=== PATIENT | female | born 1945 | race Caucasian/White ===

== ENCOUNTER 2018-04-20 19:10 | Emergency (ER) | payer MEDICARE, MEDICAID ==
[2018-04-20 19:24] VITALS: RESP 20; O2SAT 100
[2018-04-20] MEDS ORDERED: Sodium Chloride 0.9% 1,000 ML IV SCH (20:15)
--- NOTE | 2018-04-20 20:15 | ED PDOC ---
HPI: Chest Pain Chief Complaint (Provider): chest pain History Per: Patient History/Exam Limitations: no limitations Onset/Duration Of Symptoms: Days, Intermittent Episodes Current Symptoms Are (Timing): Still Present Severity: Moderate Pain Scale Rating Of: 7 Quality: Sharp Associated Symptoms: denies: Nausea, Dyspnea, Diaphoresis, Syncope Exacerbating Factors: None Alleviating Factors: None Additional History Per: Patient - Risk Factors PE Risk Factors: Neg: Extremity Immobilization/Fx, Decreased Mobilty /Activity, Recent Major Surgery, Recent Hospitalization, Previous DVT, Previous PE, CHF, Estrogen Usage TAD Risk Factors: Neg: Hypertension, Sudden Onset Of Pain <Jasmin Carr - Last Filed: 04/21/18 00:55> <Ismael Foster - Last Filed: 04/21/18 05:40> Time Seen by Provider: 04/20/18 19:28 Chief Complaint (Nursing): Chest Pain Additional Complaint(s): 73 yr old F presents to ED with complaint of left chest pain x 2 days. Patient describes pain as sharp, intermittent, last a few seconds and resolves on its own. Denies any exacerbating or alleviating factors. Associated symptoms are wet cough x 3 days, subjective fever, dysuria which resolved on its own. PMHx includes anxiety, arthritis and right total knee replacement. Denies SOB, nausea , vomiting, sweating, left arm pain, weakness, lower extremity swelling, hx of PE or DVT. Denies cardiac hx. Reports her PMD does EKG's in his office regularly and they have always been normal. Patient did not take her PRN dose of Xanax today, reports she usually takes 1 tab or 1.5 tabs daily. PMD: Kolby Joe PMHx: anxiety, arthritis SurgHx: right total knee replacement FMHx: mother at 92-had HTN, NIDDM; Father at 87-MD; sibling hx of endometrial cancer/liver failure/asthma attacks SocHx: denies tobacco/Etoh or drugs; lives alone, family lives near, can perform all ADL's on her own Medications: Aspirin 325mg PO QD, Xanax 1mg PO BID PRN anxiety Allergies: NKDA (Jasmin Carr) Supervising Attending Note <Jasmin Carr - Last Filed: 04/21/18 00:55> - Attestation: I have personally seen and examined this patient.: Yes I have fully participated in the care of the patient.: Yes I have reviewed all pertinent clinical information: Yes <Ismael Foster - Last Filed: 04/21/18 05:40> - Notes: Notes:: Patient presenting with atypical chest pain for 2 days. Low risk for cardiac involvement. EKG nonischemic, 2 troponins negative. Suitable for outpatient followup. (Ismael Foster) Past Medical History - Medical History PMH: Anxiety, Arthritis - Surgical History Other surgeries: right total knee replacement - Family History Family History: States: MD, Diabetes, Hypertension - Living Arrangements Living Arrangements: Alone - Social History Current smoker - smoking cessation education provided: No Ex-Smoker (has not smoked in the last 12 months): No Alcohol: None Drugs: Denies <Jasmin Carr - Last Filed: 04/21/18 00:55> <Ismael Foster - Last Filed: 04/21/18 05:40> Vital Signs: Last Vital Signs Temp 98.4 F 04/21/18 00:43 Pulse 69 04/21/18 00:43 Resp 20 04/21/18 00:43 BP 144/85 04/21/18 00:43 Pulse Ox 100 04/21/18 00:55 - Home Medications Home Medications: Ambulatory Orders Medication Instructions Recorded Acetaminophen with Codeine 1 tab PO BID PRN #6 tab 05/23/14 [Tylenol with Codeine No. 3 300 mg-30 mg] Alprazolam [Xanax] PRN 05/23/14 Acetaminophen with Codeine 1 tab PO Q4H PRN #15 tab 04/06/16 [Tylenol with Codeine No. 3 300 mg-30 mg] Lidocaine 5% [Lidoderm] 1 ea TD DAILY PRN #30 patch 04/06/16 Naproxen [Naprosyn] 1 tab PO BID PRN #60 tab 04/06/16 traMADol [Ultram] 50 mg PO Q8 PRN #12 tab 04/25/16 Nitrofurantoin Macrocrystals 100 mg PO BID 5 Days cap 04/21/18 [Macrobid] - Allergies Allergies/Adverse Reactions: Allergies Allergy/AdvReac Type Severity Reaction Status Date / Time No Known Allergies Allergy Verified 04/20/18 19:22 MARIANO Risk Score for UA/NSTEMI - MARIANO Risk Score Age > 64: YES 3 or more CAD Risk Factors: NO Known CAD (Stenosis greater than 50%): NO Aspirin use in past 7 days: YES Severe Angina: NO EKG ST changes greater than 0.5mm: NO MARIANO Score: 2 Risk %: 8% <Jasmin Carr - Last Filed: 04/21/18 00:55> Curb-65 Severity Score - CURB-65 Severity Score Confusion: No Respiratory Rate greater than/equal to 30: No Systolic BP <90 or Diastolic BP less than/equal 60mmHg: No Age >64: Yes Curb-65 Score: 1 Percentage 30-day mortality: 2.7% <Jasmin Carr - Last Filed: 04/21/18 00:55> Wells Criteria for PE - Wells Criteria for Pulmonary Embolism Clinical Signs and Symptoms of DVT: No P.E is #1 Diagnosis, or Equally Likely: No Heart Rate >100: No Immobilization at least 3 days;Surgery previous 4 weeks: No Previous, objectively diagnosed PE or DVT: No Hemoptysis: No Malignancy w/treatment within 6 months, or palliative: No Total Score: 0 <Jasmin Carr - Last Filed: 04/21/18 00:55> Review of Systems Constitutional: Positive for: Fever (subjective). Negative for: Sweats, Weakness Eyes: Negative for: Vision Change ENT: Negative for: Nose Congestion Cardiovascular: Positive for: Chest Pain. Negative for: Palpitations, Orthopnea , Edema, Light Headedness Respiratory: Positive for: Cough. Negative for: Shortness of Breath, Hemoptysis Gastrointestinal: Negative for: Nausea, Vomiting, Abdominal Pain, Diarrhea Genitourinary Female: Positive for: Dysuria (resolved). Negative for: Hematuria Musculoskeletal: Negative for: Neck Pain, Shoulder Pain, Arm Pain Skin: Negative for: Rash, Lesions Neurological: Negative for: Weakness, Confusion, Dizziness Psych: Positive for: Anxiety <Jasmin Carr - Last Filed: 04/21/18 00:55> Physical Exam - Physical Exam Appears: Positive for: No Acute Distress Head Exam: Positive for: ATRAUMATIC, NORMAL INSPECTION Skin: Positive for: Normal Color, Warm, Dry Eye Exam: Positive for: EOMI, PERRL ENT: Positive for: Pharyngeal Erythema (mild) Neck: Positive for: Painless ROM, Supple Cardiovascular/Chest: Positive for: Regular Rate, Rhythm. Negative for: Chest Non Tender (positive tenderness to palpation along left upper chest), Gallop, JVD, Murmur Respiratory: Positive for: Normal Breath Sounds. Negative for: Accessory Muscle Use, Crackles, Rales, Rhonchi, Wheezing Pulses-Carotid (L): 2+ Pulses-Carotid (R): 2+ Pulses-Dorsalis Pedis (L): 2+ Pulses-Dorsalis Pedis (R): 2+ Pulses-Post. Tibialis (L): 2+ Pulses-Post. Tibialis (R): 2+ Pulses-Radial (L): 2+ Pulses-Radial (R): 2+ Gastrointestinal/Abdominal: Positive for: Bowel Sounds (present and normal), Soft. Negative for: Tenderness, Distended, Guarding Back: Positive for: Normal Inspection Extremity: Positive for: Normal ROM, Pedal Edema (+1 bilaterally). Negative for : Tenderness, Calf Tenderness, Deformity, Swelling Lymphatic: Positive for: Adenopathy (mild submandibular ) Neurologic/Psych: Positive for: Alert, procedure tech II-XII, Oriented, Mood/Affect (full range), Gait (normal). Negative for: Motor/Sensory Deficits, Aphasia, Facial Droop <Jasmin Carr - Last Filed: 04/21/18 00:55> - Laboratory Results Result Diagrams: 04/20/18 20:33 04/20/18 20:33 - ECG O2 Sat by Pulse Oximetry: 100 - Progress Condition: Re-examined, Improved <Jasmin Carr - Last Filed: 04/21/18 00:55> - Laboratory Results Result Diagrams: 04/20/18 20:33 04/20/18 20:33 <Ismael Foster - Last Filed: 04/21/18 05:40> - Progress ED Course And Treament: -EKG: NSR, no significant ST-T changes -CXR -CBC with diff -CMP -Urine dip: small leukocytes -Troponin Q4 x 2; first troponin < 0.0120 -color television console monitor -Toradol 15mg IV once -NS 1L IV bolus -UA: moderate luekocyte esterase (Jasmin Carr) Disposition - Patient ED Disposition Is Patient to be Admitted: No Counseled Patient/Family Regarding: Diagnosis, Need For Followup, Rx Given - Disposition Disposition: Routine/Home Disposition Time: 00:55 <Jasmin Carr - Last Filed: 04/21/18 00:55> <Ismael Foster - Last Filed: 04/21/18 05:40> - Clinical Impression Clinical Impression: Atypical chest pain, UTI (urinary tract infection) - Disposition Referrals: Kolby Trinh MD [Staff Provider] - Condition: IMPROVED Prescriptions: Nitrofurantoin Macrocrystals [Macrobid] 100 mg PO BID 5 Days cap Instructions: Urinary Tract Infections in Adults, Chest Pain That Is Not Caused by the Heart (DC) Forms: [facility] [employer] [facility] [employer] ([place]) Print Language: PORTUGUESE
[2018-04-20 20:42] LABS: BASO # 0.1 K/uL (0.0-0.2); BASO % 0.9 % (0.0-2.0); EOS # 0.2 K/uL (0.0-0.7); EOS % 2.6 % (0.0-4.0); HEMOGLOBIN 12.3 g/dL (12.0-16.0); LYMPH # 1.9 K/uL (1.0-4.3); LYMPH % 30.1 % (20.0-40.0); MEAN CELL VOLUME 93.1 fl (81.0-99.0); MEAN CORPUSCULAR HEMOGLOBIN 30.8 pg (27.0-31.0); MEAN CORPUSCULAR HGB CONC 33.1 g/dL (33.0-37.0); MEAN PLATELET VOLUME 9.8 fl (7.2-11.7); MONO # 0.4 K/uL (0.0-0.8); MONO % 6.3 % (0.0-10.0); NEUT # 3.9 K/uL (1.8-7.0); NEUT % 60.1 % (50.0-75.0); NRBC % 0.2 % (0.0-0.0); RED CELL DISTRIBUTION WIDTH 14.4 % (11.5-14.5); WHITE BLOOD COUNT 6.4 K/uL (4.8-10.8)
[2018-04-20 20:47] LABS: ALB/GLOB RATIO 1.3 (1.0-2.1); ALT/SGPT 25 U/L (9-52); AST/SGOT 24 U/L (14-36); BLOOD UREA NITROGEN 15 mg/dl (7-17); CALCIUM 9.3 mg/dL (8.4-10.2); GFR AFRICAN-AMERICAN > 60; GFR NON-AFRICAN AMERICAN > 60
[2018-04-20 21:27] LABS: SQUAMOUS EPITHIAL < 1 /hpf (0-5); URINE BILIRUBIN NEGATIVE (NEGATIVE); URINE BLOOD NEGATIVE (NEGATIVE); URINE CLARITY CLEAR (Clear); URINE COLOR STRAW (YELLOW); URINE GLUCOSE (UA) NEG (Normal); URINE LEUKOCYTE ESTERASE MOD Leu/uL (Negative); URINE PROTEIN NEGATIVE (NEGATIVE); URINE UROBILINOGEN 0.2-1.0 mg/dL (0.2-1.0)
[2018-04-21 00:44] VITALS: BP 144/85; PULSE 69; TEMP 98.4
--- NOTE | 2018-04-21 14:53 | RAD ---
Date of service: 04/20/2018 HISTORY: chest pain COMPARISON: 05/23/2014 TECHNIQUE: Chest PA and lateral FINDINGS: LUNGS: No active pulmonary disease. PLEURA: No significant pleural effusion identified. No pneumothorax apparent. CARDIOVASCULAR: Normal. OSSEOUS STRUCTURES: No significant abnormalities. VISUALIZED UPPER ABDOMEN: Normal. OTHER FINDINGS: None. IMPRESSION: No active disease.
== END 2018-04-21 01:11 | disposition home or self-care (01) ==
LOC: H.ER 19:10
DX: N39.0 Urinary tract infection, site not specified (principal); R07.9 Chest pain, unspecified; Z82.49 Family history of ischemic heart disease and other diseases of the circulatory system; Z82.5 Family history of asthma and other chronic lower respiratory diseases; Z87.891 Personal history of nicotine dependence; Z96.651 Presence of right artificial knee joint
CPT/HCPCS: 71046; 80053; 81003; 84484; 85025; 96374; 99283; J1885; J7030

== ENCOUNTER 2018-07-20 10:57 | Emergency (ER) | payer MEDICARE, MEDICAID ==
[2018-07-20 11:39] VITALS: BMI 28.6
[2018-07-20] MEDS ORDERED: Naproxen 500 MG TAB PO STA (12:39)
[2018-07-20] MEDS ORDERED: Naproxen 500 MG TAB PO ONE (12:47)
--- NOTE | 2018-07-20 13:05 | ED PDOC ---
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 denies: Chills, Nausea, Vomiting, Diarrhea Ear Symptoms: Left: Ear Pain Additional Complaint(s): 73 year old female with no pertinent past medical history presents to the ED for evaluation of worsening throat pain that started 3x days ago, associated with pain on swallowing. Patient reports she started to lose her voice yesterday. Patient reports having associated symptoms of a slight cough productive of white phlegm, tactile fever, and left sided ear pain. Patient denies taking medications for pain prior to arrival. Patient denies having chills, night sweats, chest pain, abdominal pain, nausea, vomiting, diarrhea, congestion, headache, dizziness, SOB, dyspnea, orthopnea, leg swelling, recent travel, or sick contacts. PMD: Kolby Trinh MD Past Medical History Reviewed: Historical Data, Nursing Documentation, Vital Signs Vital Signs: Last Vital Signs Temp 98 F 07/20/18 11:37 Pulse 83 07/20/18 11:37 Resp 20 07/20/18 11:37 BP 127/82 07/20/18 11:37 Pulse Ox 98 07/20/18 11:37 - Medical History PMH: Anxiety, Arthritis - Surgical History Other surgeries: right knee replacement - Family History Family History: States: Unknown Family Hx - Home Medications Home Medications: Ambulatory Orders Medication Instructions Recorded Acetaminophen with Codeine 1 tab PO BID PRN #6 tab 05/23/14 [Tylenol with Codeine No. 3 300 mg-30 mg] Alprazolam [Xanax] PRN 05/23/14 Acetaminophen with Codeine 1 tab PO Q4H PRN #15 tab 07/07/16 [Tylenol with Codeine No. 3 300 mg-30 mg] Lidocaine 5% [Lidoderm] 1 ea TD DAILY PRN #30 patch 04/06/16 RX: Naproxen [Naprosyn] 1 tab PO BID PRN #60 tab 04/06/16 RX: traMADol [Ultram] 50 mg PO Q8 PRN #12 tab 04/25/16 Nitrofurantoin Macrocrystals 100 mg PO BID 5 Days cap 04/21/18 [Macrobid] Acetaminophen [Acetaminophen 8 650 mg PO Q8 PRN #21 tablet.er 07/20/18 Hour] Amoxicillin/Clavulanate [Augmentin 1 tab PO BID #14 tab 07/20/18 875 MG-125 MG] Benzonatate [Tessalon Perles] 100 mg PO Q6 PRN #20 sgl 07/20/18 - Allergies Allergies/Adverse Reactions: Allergies Allergy/AdvReac Type Severity Reaction Status Date / Time No Known Allergies Allergy Verified 07/20/18 12:18 Review of Systems ROS Statement: Except As Marked, All Systems Reviewed And Found Negative Constitutional: Positive for: Fever (tactile). Negative for: Sweats ENT: Positive for: Ear Pain (left sided ear pain), Throat Pain Cardiovascular: Negative for: Chest Pain Respiratory: Positive for: Cough (productive of white phlegm) Gastrointestinal: Negative for: Nausea, Vomiting, Abdominal Pain, Diarrhea Physical Exam - Reviewed Nursing Documentation Reviewed: Yes Vital Signs Reviewed: Yes - Physical Exam Comments: GENERAL APPEARANCE: Patient is awake, alert, oriented x 3, resting comfortably, in no acute distress. SKIN: Warm, dry; (-) cyanosis. ENMT: Canals : (-) cerumen impaction, (-) exudate (-) erythema. TMs: (-) bulging and (-) erythema,(-) perforation,(-) vesicles. Frontal / maxillary sinuses : (-) tenderness. (-) TMJ tenderness. Pharynx: (+) erythema, (+) right side tonsilar exudates (-) hypertrophy. Airway patent: (-) stridor. (+) Nares patent, (-) rhinorrhea. Mucus membranes moist. NECK: Supple, FROM (-) stiffness, (-) tenderness, (-) lymphadenopathy. LUNGS: Clear to auscultation bilaterally (-) wheezing, (-) rhonchi (-) rales. Speaking in full sentences, respirations even and nonlabored. CARDIAC: (-) irregularity ABDOMEN: Soft, nontender, nondistended (-) guarding (-) CVA tenderness - ECG O2 Sat by Pulse Oximetry: 98 (RA) Pulse Ox Interpretation: Normal Medical Decision Making Medical Decision Makin:20 Clinical Impression: 73 year old female with tonsillitis/ pharyngitis, cough Initial plan: * Chest Xrays 2 views * Rapid strep * Throat culture * Amoxil 500 mg Cap * naproxen 500 mg PO * reevaluation 1330 Rapid Strep: Negative 1415 CXR reviewed, radiology report follows Date of service: 07/20/2018 HISTORY: cough COMPARISON: Comparison chest dated 04/20/2018. TECHNIQUE: Chest PA and lateral FINDINGS: LUNGS: Poor inspiration with low lung volumes, crowded bronchovascular markings and mild bibasilar atelectasis and/or scarring changes left greater than right; developing left lower lobe infiltrate could be excluded with follow-up radiographs... PLEURA: No significant pleural effusion identified. No pneumothorax apparent. CARDIOVASCULAR: Minor aortic atherosclerotic calcification present Cardiomegaly. OSSEOUS STRUCTURES: No significant abnormalities. VISUALIZED UPPER ABDOMEN: Normal. OTHER FINDINGS: None. IMPRESSION: Poor inspiration with low lung volumes, crowded bronchovascular markings and mild bibasilar atelectasis and/or scarring changes left greater than right; developing left lower lobe infiltrate could be excluded with follow-up radiographs. On re-evaluation, patient reports improvement of symptoms. On exam, patient remains AAOx3, in no acute distress. Lungs clear to auscultation, cardiac RRR, abdomen soft, non-tender, repeat neuro exam shows no focal findings. Vitals stable, no hypoxia or respiratory distress noted throughout ED visit. Patient continues to deny SOB or chest pain. Repeat CXR encouraged and close follow up with PMD stressed. Lab/Diagnostic results d/w the patient in great detail using nurses medical assistants phlebotomists #[id number]. Diagnosis of pharyngitis/tonsillitis, cough d/w the patient. Based on history, exam and diagnostic results, plan will be for outpatient follow up with PMD. Patient instructed to follow-up with pmd / referral provided / the clinic in 1- 2 days without fail. Advised to take medication as prescribed. Return to the emergency room at any time for any new or worsening symptoms. Patient states she fully agrees with and understands discharge instructions. States that she agrees with the plan and disposition. Verbalized and repeated discharge instructions and plan. I have given the patient opportunity to ask any additional questions. Scribe Attestation: Documented by Candis Jimenes, acting as a scribe for Candis Sumner Provider Scribe Attestation: All medical record entries made by the Scribe were at my direction and personally dictated by me. I have reviewed the chart and agree that the record accurately reflects my personal performance of the history, physical exam, medical decision making, and the department course for this patient. I have also personally directed, reviewed, and agree with the discharge instructions and disposition. Disposition - Clinical Impression Clinical Impression: Pharyngitis, Cough, Tonsillitis - Patient ED Disposition Is Patient to be Admitted: No Counseled Patient/Family Regarding: Studies Performed, Diagnosis, Need For Foll owup, Rx Given - Disposition Referrals: Kolby Trinh MD [Family Provider] - Disposition: Routine/Home Disposition Time: 14:20 Condition: STABLE Additional Instructions: La atencin mdica de emergencia que recibi hoy se dirigi a kala sntomas sammie dos. Si le recetaron algn medicamento, llnelo y tmelo segn las indicaciones. Los sntomas pueden tardar varios lewis en resolverse. Regrese al Departamento de Emergencias si kala sntomas empeoran, no mejoran o si tiene otros problemas. Comunquese con montesinos mdico dentro de 2 lewis para obdulia nueva evaluacin y noemi un seguimiento o llame a laura de los mdicos / clnicas a los que [place] sido referido y que figuran en el formulario de Informacin de visita al paciente que se incluye en montesinos [place]qu[place] de justus. Lleve con usted a montesinos consulta de seguimiento toda la documentacin que recibi del justus junto con los medicamentos que est tomando. Nuestro tratamiento no puede reemplazar la atencin mdica continua por parte de un proveedor de atencin primaria (PCP) fuera del departamento de emergencias. Prescriptions: Acetaminophen [Acetaminophen 8 Hour] 650 mg PO Q8 PRN #21 tablet.er PRN Reason: Pain, Moderate (4-7) Amoxicillin/Clavulanate [Augmentin 875 MG-125 MG] 1 tab PO BID #14 tab Benzonatate [Tessalon Perles] 100 mg PO Q6 PRN #20 sgl PRN Reason: Cough Instructions: Laryngitis, Cough in Adults, Sore Throat in Adults, Bacterial Upper Respiratory Infection, Adult Forms: [employer] (Danish) Print Language: TAJIK - POA Present On Arrival: None Results - Lab Results Lab Results: 07/20/18 12:31 Grp A Beta Strep Ag Negative
--- NOTE | 2018-07-20 14:09 | RAD ---
Date of service: 07/20/2018 HISTORY: cough COMPARISON: Comparison chest dated 04/20/2018. TECHNIQUE: Chest PA and lateral FINDINGS: LUNGS: Poor inspiration with low lung volumes, crowded bronchovascular markings and mild bibasilar atelectasis and/or scarring changes left greater than right; developing left lower lobe infiltrate could be excluded with follow-up radiographs... PLEURA: No significant pleural effusion identified. No pneumothorax apparent. CARDIOVASCULAR: Minor aortic atherosclerotic calcification present Cardiomegaly. OSSEOUS STRUCTURES: No significant abnormalities. VISUALIZED UPPER ABDOMEN: Normal. OTHER FINDINGS: None. IMPRESSION: Poor inspiration with low lung volumes, crowded bronchovascular markings and mild bibasilar atelectasis and/or scarring changes left greater than right; developing left lower lobe infiltrate could be excluded with follow-up radiographs.
[2018-07-20 14:44] VITALS: BP 119/83; PULSE 74; RESP 18; TEMP 98.9
[2018-07-20 18:20] VITALS: O2SAT 98
== END 2018-07-20 14:43 | disposition home or self-care (01) ==
LOC: H.ER 10:57
DX: J02.9 Acute pharyngitis, unspecified (principal); R05 Cough; J03.90 Acute tonsillitis, unspecified; Z96.651 Presence of right artificial knee joint